=== PATIENT | female | born 1990 | race Two or more races ===

== ENCOUNTER → 2019-09-24 | Emergency (ER) | payer SELFPAY ==
[~2019-09-24] VITALS: Ht 175.3 cm; Wt 59.0 kg
[~2019-09-24] MED LIST: SODIUM CHLORIDE 0.9% 1,000 ML IV ONE; SODIUM CHLORIDE 0.9% 500 ML IVB ONE
[2019-09-24 08:43] LABS: Urine Bacteria NONE SEEN /hpf (None Seen); Urine Blood Negative /uL (Negative); Urine Specific Gravity 1.001 (1.001-1.035); Urine WBC <1 /hpf (0 - 5)
[2019-09-24 08:57] LABS: Hematocrit 42.7 % (36.0-46.0); Hemoglobin 14.1 g/dL (12.2-16.2); Mean Corpuscular Hemoglobin 32.6 pg (28.0-32.0); Mean Corpuscular Hgb Conc. 33.1 g/dL (32.0-36.0); Mean Corpuscular Volume 98.6 fL (80.0-100.0); Platelet Count (auto) 234 10^3/uL (140-450); Red Blood Cells 4.34 10^6/uL (4.0-5.20); Red Cell Distribution Width 13.1 % (11.8-14.3); White Blood Cell 5.6 10^3/uL (4.4-10.8)
[2019-09-24 09:09] LABS: Band Neutrophils % (manual) 0; Basophils % (manual) 0 (0.0-2.0); Blast Cells 0; Metamyelocytes % 0; Myelocytes % 0; Promyelocytes % 0; Reactive Lymphocytes 0
[2019-09-24 09:12] LABS: Albumin 3.3 g/dL (3.4-5.0); Anion Gap 6 (5-15); Blood Urea Nitrogen 9 mg/dL (7-18); Calcium 8.3 mg/dL (8.5-10.1); Carbon Dioxide 27 mmol/L (21-32); Chloride 111 mmol/L (98-107); Glucose 85 mg/dL (74-106); Potassium 3.4 mmol/L (3.5-5.1); Sodium 144 mmol/L (136-145)
[2019-09-24 09:14] LABS: Alanine Aminotransferase 17 U/L (13-56); Aspartate Aminotransferase 12 U/L (15-37); BUN/Creatinine Ratio 14.1; GFR African American 140 mL/min; GFR Non-African American 116 mL/min
[2019-09-24 09:19] LABS: Alkaline Phosphatase 58 U/L (45-117); Bilirubin, Total 0.4 mg/dL (0.2-1.0); Total Protein 7.1 g/dL (6.4-8.2)
[2019-09-24 09:49] LABS: Eosinophils % (manual) 1 (0-7); Lymphocytes % (manual) 53 (10.0-50.0); Monocytes % (manual) 8 (0-12)
[2019-09-24 09:50] LABS: Amphetamine Screen, Urine NEGATIVE (NEGATIVE); Barbiturate Scree,Urine NEGATIVE (NEGATIVE); Benzodiazephine Screen, Urine NEGATIVE (NEGATIVE); Cannabinoid Screen, Urine NEGATIVE (NEGATIVE); Cocaine Screen, Urine NEGATIVE (NEGATIVE); Opiate Scree,Urine NEGATIVE (NEGATIVE); Phencyclidine Screen, Urine NEGATIVE (NEGATIVE)
[2019-09-24 10:35] VITALS: BP 96/53
== END | disposition home or self-care (01) ==
LOC: ER 07:49 → EDBD 07:49
DX: R55 Syncope and collapse (principal); F10.10 Alcohol abuse, uncomplicated; E87.6 Hypokalemia; E46 Unspecified protein-calorie malnutrition
CPT/HCPCS: 36415; 71046; 80053; 80307; 81001; 83735; 84484; 85007; 85027; 93005; 96360; 96361